=== PATIENT | female | born 1945 | race Caucasian/White ===

== ENCOUNTER 2017-07-12 18:20 | Emergency (ER) | payer MEDICARE, OTHER ==
[~2017-07-12] VITALS: Ht 165.1 cm; Wt 85.8 kg
[2017-07-12] MEDS ORDERED: SODIUM CHLORIDE 0.9% 1,000 ML IV ONE (18:37)
[2017-07-12] MEDS ORDERED: SODIUM CHLORIDE 0.9% 1,000ML IVBOLUS ONE (19:00)
[2017-07-12] MEDS ORDERED: ONDANSETRON 2MG/ML, 2ML IVPush ONE (19:00)
[2017-07-12] MEDS ORDERED: SODIUM CHLORIDE FLUSH 10ML SYR IVF ONE (19:00)
[2017-07-12] MEDS ORDERED: METF500T4 PO (19:11)
[2017-07-12] MEDS ORDERED: LEVO175T5 PO (19:11)
[2017-07-12] MEDS ORDERED: ATEN25TA PO (19:11)
[2017-07-12] MEDS ORDERED: PIOG30TA23 PO (19:11)
[2017-07-12] MEDS ORDERED: LISI-167 PO (19:11)
[2017-07-12] MEDS ORDERED: CYCL1DRO OP (19:11)
[2017-07-12] MEDS ORDERED: ATOR20TA PO (19:11)
[2017-07-12] MEDS ORDERED: HYDR25TA6 PO (19:11)
[2017-07-12 19:17] LABS: HEMATOCRIT 36.7 % (34.6-47.8); HEMOGLOBIN 12.3 g/dL (11.7-16.4); WHITE BLOOD COUNT 8.1 x10^3/uL (3.4-10)
[2017-07-12 19:23] LABS: ASPARTATE AMINO TRANSFERASE 20 U/L (15-37); BLOOD UREA NITROGEN 21 mg/dL (7-18)
[2017-07-12 19:28] LABS: IS PT STATUS REG ER OR PRE ER? YES
[2017-07-12 19:47] VITALS: BP 118/61
== END 2017-07-12 20:27 | disposition home or self-care (01) ==
LOC: ED 20:21
DX: R55 Syncope and collapse (principal); E03.9 Hypothyroidism, unspecified; I10 Essential (primary) hypertension; E11.9 Type 2 diabetes mellitus without complications; E78.5 Hyperlipidemia, unspecified; Z96.651 Presence of right artificial knee joint
CPT/HCPCS: 36415; 70450; 71010; 80053; 80307; 83880; 84484; 85025; 93005; 99285